=== PATIENT | male | born 1955 | race Caucasian/White ===

== ENCOUNTER 2021-11-10 13:28 | Inpatient (IN) ==
[2021-11-10] MEDS ORDERED: 0.9 % Sodium Chloride 1,000 ML IVC ONE (14:42)
[2021-11-10] MEDS ORDERED: Furosemide 20 MG/2 ML VIAL IVP ONE (15:04)
[2021-11-10 15:17] LABS: Basophils % 0.5 %; Eosinophils % 0.8 %; Mean Corpuscular Volume 98.4 fL (83.0-100.0); Platelet Count 158 K/mcL (140-400)
[2021-11-10 15:18] LABS: Hematocrit 29.9 % (37.5-50.1); Hemoglobin 8.6 g/dL (12.9-16.9); Immature Granulocytes % 0.5 % (0-4); Lymphocytes % 24.7 %; Mean Corpuscular HGB Conc 28.8 g/dL (31.6-35.5); Mean Corpuscular Hemoglobin 28.3 pg (28.0-33.3); Mean Platelet Volume 11.5 fL (9.4-12.4); Monocytes # 0.4 K/mcL (0.0-1.3); Monocytes % 8.9 %; Neutrophils # 2.5 K/mcL (1.6-8.9); Red Blood Count 3.04 M/mcL (4.19-5.50); Red Cell Distribution Width 16.8 % (11.5-14.5); Segmented Neutrophils % 64.6 %; White Blood Count 3.9 K/mcL (4.3-11.1)
[2021-11-10 15:27] LABS: INR 2.1
[2021-11-10 15:30] LABS: Activated Partial Thrombo Time 38.9 Seconds (26.0-36.0)
[2021-11-10 15:34] LABS: Albumin 3.9 g/dL (3.5-5.7); Albumin/Globulin Ratio 1.3 (1.1-2.2); Bilirubin,Direct 0.1 mg/dL (0.0-0.2); Bilirubin,Indirect 0.2 mg/dL (0.0-1.0); Bilirubin,Total 0.3 mg/dL (0.3-1.0); Calcium 8.4 mg/dL (8.6-10.3); Globulin 3.1 g/dL (2.4-3.5); Potassium 5.3 mEq/L (3.5-5.1)
[2021-11-10 16:07] LABS: Influenza A PCR Negative (Negative); Influenza B PCR Negative (Negative); Resp. Syncytial Virus PCR Negative (Negative)
[2021-11-10 16:10] LABS: SARS-CoV-2 by PCR (In House) Negative (Negative)
[2021-11-10 16:44] LABS: Platelet Estimate Normal (Normal)
[2021-11-10 17:33] LABS: % Iron Saturation 5 % (20-55); Iron 23 mcg/dL (65-175); Transferrin 347 mg/dL (203-362)
[2021-11-10] MEDS ORDERED: Naloxone 0.4 MG/ML INJ IVP PRN (17:37)
[2021-11-10] MEDS ORDERED: *HR* Dextrose 50 % in Water (Syg) 50 ML SYRINGE IVP PRN (17:40)
[2021-11-10] MEDS ORDERED: Dextrose Gel 15 GM/37.5 ML TUBE PO PRN ×2 (17:40)
[2021-11-10] MEDS ORDERED: D5% in Water 1,000 ML IVC PRN (17:40)
[2021-11-10 17:46] LABS: Ferritin 14 ng/mL (20-250)
[2021-11-10 18:55] LABS: Bilirubin,Urine Negative (Negative); Blood,Urine Negative (Negative); Clarity,Urine Clear (Clear); Color,Urine Colorless (Yellow); Glucose,Urine (UA) Normal (Normal); Ketones,Urine Negative (Negative); Leukocyte Esterase,Urine Negative (Negative); Nitrite,Urine Negative (Negative); PH,Urine 5.5 pH Units (5.0-8.0); Protein,Urine Negative (Neg-Trace); Specific Gravity,Urine 1.013 (1.010-1.025); Urobilinogen,Urine Normal (Normal)
[2021-11-10 19:06] LABS: Protein/Creatinine Ratio,Urine 0.15 mg/mg (0.00-0.20)
[2021-11-10] MEDS: Apixaban 5 MG TABLET PO SCH (22:29)
[2021-11-10] MEDS: SODIUM ZIRCONIUM CYCLOSILICATE 5 GM POWD.PACK PO SCH (22:29)
[2021-11-10] MEDS: Furosemide 40 MG/4 ML VIAL IVP SCH (22:29)
[2021-11-10] MEDS: Insulin DETEMIR 100 UNIT/ML X5UNITS SUBQ SCH (22:29)
[2021-11-10] MEDS: calcitrioL 0.25 MCG CAPSULE PO SCH (22:29)
[2021-11-10] MEDS: Albumin 25% 25gram/100mL 25 GM/100 ML IV.SOLN IVPB SCH (22:30)
[2021-11-10] MEDS: Metoprolol XL (24 HR) Succ 25 MG TAB.ER.24H PO SCH (22:30)
[2021-11-10] MEDS: Insulin LISPRO 300 UNITS/3 ML VIAL SUBQ SCH (22:31)
[2021-11-10] MEDS: metOLazone 5 MG TABLET PO SCH (22:32)
[2021-11-11] MEDS: Albumin 25% 25gram/100mL 25 GM/100 ML IV.SOLN IVPB SCH ×3 (00:51→16:31)
[2021-11-11 02:35] LABS: Basophils % 0.6 %; Immature Granulocytes % 0.3 % (0-4)
[2021-11-11 02:37] LABS: Eosinophils % 0.9 %; Hematocrit 27.4 % (37.5-50.1); Hemoglobin 7.8 g/dL (12.9-16.9); Lymphocytes % 30.2 %; Mean Corpuscular HGB Conc 28.5 g/dL (31.6-35.5); Mean Corpuscular Volume 98.2 fL (83.0-100.0); Mean Platelet Volume 11.6 fL (9.4-12.4); Monocytes # 0.3 K/mcL (0.0-1.3); Platelet Count 143 K/mcL (140-400); Red Blood Count 2.79 M/mcL (4.19-5.50); Red Cell Distribution Width 16.8 % (11.5-14.5); White Blood Count 3.3 K/mcL (4.3-11.1)
[2021-11-11 02:49] LABS: Calcium 8.4 mg/dL (8.6-10.3); Magnesium 2.5 mg/dL (1.6-2.6); Phosphorous 4.5 mg/dL (2.7-4.5); Potassium 4.7 mEq/L (3.5-5.1)
[2021-11-11 03:29] LABS: Hypochromasia Present (Not Present); Platelet Estimate Normal (Normal)
[2021-11-11] MEDS: SODIUM ZIRCONIUM CYCLOSILICATE 5 GM POWD.PACK PO SCH (08:23)
[2021-11-11] MEDS: BuPROPion XL (24 HR) 150 MG TABLET PO SCH (08:23)
[2021-11-11] MEDS: metOLazone 5 MG TABLET PO SCH (08:26)
[2021-11-11] MEDS: Apixaban 5 MG TABLET PO SCH ×2 (08:27→21:28)
[2021-11-11] MEDS: Insulin LISPRO 300 UNITS/3 ML VIAL SUBQ SCH ×4 (08:27→21:27)
[2021-11-11] MEDS: Furosemide 40 MG/4 ML VIAL IVP SCH ×2 (08:27→17:26)
[2021-11-11] MEDS: Metoprolol XL (24 HR) Succ 50 MG TAB.ER.24H PO SCH (08:27)
[2021-11-11] MEDS: Insulin DETEMIR 100 UNIT/ML X5UNITS SUBQ SCH ×2 (08:28→22:41)
[2021-11-11] MEDS: calcitrioL 0.25 MCG CAPSULE PO SCH (11:18)
[2021-11-11] MEDS: Metoprolol XL (24 HR) Succ 25 MG TAB.ER.24H PO SCH (17:26)
[2021-11-12] MEDS: Albumin 25% 25gram/100mL 25 GM/100 ML IV.SOLN IVPB SCH ×3 (00:32→15:27)
[2021-11-12] MEDS: Metoprolol XL (24 HR) Succ 50 MG TAB.ER.24H PO SCH (09:10)
[2021-11-12] MEDS: BuPROPion XL (24 HR) 150 MG TABLET PO SCH (09:10)
[2021-11-12] MEDS: calcitrioL 0.25 MCG CAPSULE PO SCH (09:10)
[2021-11-12] MEDS: metOLazone 5 MG TABLET PO SCH (09:10)
[2021-11-12] MEDS: SODIUM ZIRCONIUM CYCLOSILICATE 5 GM POWD.PACK PO SCH (09:10)
[2021-11-12] MEDS: Insulin DETEMIR 100 UNIT/ML X5UNITS SUBQ SCH ×2 (09:11→21:57)
[2021-11-12] MEDS: Insulin LISPRO 300 UNITS/3 ML VIAL SUBQ SCH ×4 (09:15→21:57)
[2021-11-12] MEDS: Ondansetron 4 MG/2 ML VIAL IVP PRN (10:16)
[2021-11-12 12:13] LABS: Calcium 8.7 mg/dL (8.6-10.3); Potassium 4.7 mEq/L (3.5-5.1)
[2021-11-12] MEDS: Apixaban 5 MG TABLET PO SCH ×2 (12:20→21:57)
[2021-11-12] MEDS: Furosemide 40 MG/4 ML VIAL IVP SCH ×2 (12:20→17:40)
[2021-11-12] MEDS ORDERED: Metoclopramide 10 MG/2 ML VIAL IVP PRN (14:56)
[2021-11-12] MEDS: Metoprolol XL (24 HR) Succ 25 MG TAB.ER.24H PO SCH (17:07)
[2021-11-12 21:45] LABS: Lambda Qnt Free Light Chains 60.57 mg/L (5.71-26.30)
[2021-11-13] MEDS: Albumin 25% 25gram/100mL 25 GM/100 ML IV.SOLN IVPB SCH ×3 (00:10→17:51)
[2021-11-13 02:26] LABS: Eosinophils % 1.1 %; Immature Granulocytes % 0.5 % (0-4)
[2021-11-13 02:28] LABS: Basophils % 0.7 %; Eosinophils # 0.1 K/mcL (0.0-0.6); Hematocrit 29.1 % (37.5-50.1); Hemoglobin 8.1 g/dL (12.9-16.9); Lymphocytes # 1.3 K/mcL (0.6-4.6); Lymphocytes % 29.1 %; Mean Corpuscular HGB Conc 27.8 g/dL (31.6-35.5); Mean Corpuscular Hemoglobin 27.6 pg (28.0-33.3); Mean Corpuscular Volume 99.3 fL (83.0-100.0); Mean Platelet Volume 12.2 fL (9.4-12.4); Monocytes # 0.5 K/mcL (0.0-1.3); Monocytes % 10.7 %; Neutrophils # 2.6 K/mcL (1.6-8.9); Platelet Count 156 K/mcL (140-400); Red Blood Count 2.93 M/mcL (4.19-5.50); Red Cell Distribution Width 16.8 % (11.5-14.5); Segmented Neutrophils % 57.9 %; White Blood Count 4.4 K/mcL (4.3-11.1)
[2021-11-13 02:47] LABS: Calcium 8.7 mg/dL (8.6-10.3); Magnesium 2.3 mg/dL (1.6-2.6); Phosphorous 4.6 mg/dL (2.7-4.5); Potassium 4.8 mEq/L (3.5-5.1)
[2021-11-13 02:57] LABS: Anisocytosis 1+ (Not Present); Hypochromasia Present (Not Present); Platelet Estimate Normal (Normal)
[2021-11-13 09:20] LABS: Kappa Qnt Free Light Chains 136.46 mg/L (3.30-19.40)
[2021-11-13 09:43] LABS: INR 1.9; Prothrombin Time 21.4 Seconds (9.4-12.1)
[2021-11-13] MEDS: calcitrioL 0.25 MCG CAPSULE PO SCH (10:19)
[2021-11-13] MEDS: BuPROPion XL (24 HR) 150 MG TABLET PO SCH (10:20)
[2021-11-13] MEDS: Apixaban 5 MG TABLET PO SCH ×2 (10:21→20:03)
[2021-11-13] MEDS: Metoprolol XL (24 HR) Succ 50 MG TAB.ER.24H PO SCH (10:22)
[2021-11-13] MEDS: Insulin LISPRO 300 UNITS/3 ML VIAL SUBQ SCH ×4 (10:22→20:04)
[2021-11-13] MEDS: metOLazone 5 MG TABLET PO SCH (10:22)
[2021-11-13] MEDS: SODIUM ZIRCONIUM CYCLOSILICATE 5 GM POWD.PACK PO SCH (10:22)
[2021-11-13] MEDS: Furosemide 40 MG/4 ML VIAL IVP SCH ×4 (10:29→21:30)
[2021-11-13] MEDS: Insulin DETEMIR 100 UNIT/ML X5UNITS SUBQ SCH ×2 (11:43→20:05)
[2021-11-13 13:51] LABS: Total Protein,Peritoneal Fluid 4.1 g/dL
[2021-11-13] MEDS: DilTIAZem CD (24hr) 120 MG CAP.ER.24H PO SCH (14:10)
[2021-11-13 14:41] LABS: RBC,Peritoneal Fluid < 2000 RBC/mcL
[2021-11-13 14:43] LABS: Appearance of Peritoneal Fl CLEAR (Clear)
[2021-11-13 15:33] LABS: Eosinophils,Peritoneal Fluid 0 %
[2021-11-13] MEDS ORDERED: Metoprolol XL (24 HR) Succ 25 MG TAB.ER.24H PO SCH (18:00)
[2021-11-13] MEDS: Albumin 25% 25gram/100mL 25 GM/100 ML IV.SOLN IVC SCH ×2 (18:04→20:01)
[2021-11-13] MEDS: Ondansetron 4 MG/2 ML VIAL IVP PRN (21:19)
[2021-11-14 06:43] LABS: Basophils % 0.5 %; Eosinophils # 0.1 K/mcL (0.0-0.6); Eosinophils % 1.2 %; Hematocrit 29.6 % (37.5-50.1); Hemoglobin 8.4 g/dL (12.9-16.9); Immature Granulocytes % 0.5 % (0-4); Lymphocytes # 1.1 K/mcL (0.6-4.6); Lymphocytes % 26.9 %; Mean Corpuscular HGB Conc 28.4 g/dL (31.6-35.5); Mean Corpuscular Hemoglobin 27.9 pg (28.0-33.3); Mean Corpuscular Volume 98.3 fL (83.0-100.0); Mean Platelet Volume 12.1 fL (9.4-12.4); Monocytes # 0.4 K/mcL (0.0-1.3); Monocytes % 10.2 %; Neutrophils # 2.5 K/mcL (1.6-8.9); Platelet Count 149 K/mcL (140-400); Red Blood Count 3.01 M/mcL (4.19-5.50); Red Cell Distribution Width 16.5 % (11.5-14.5); Segmented Neutrophils % 60.7 %; White Blood Count 4.1 K/mcL (4.3-11.1)
[2021-11-14 06:44] LABS: Hypochromasia Present (Not Present); Platelet Estimate Normal (Normal)
[2021-11-14 07:11] LABS: Calcium 9.1 mg/dL (8.6-10.3); Magnesium 2.3 mg/dL (1.6-2.6); Potassium 4.5 mEq/L (3.5-5.1)
[2021-11-14] MEDS: Apixaban 5 MG TABLET PO SCH (07:42)
[2021-11-14] MEDS: Metoprolol XL (24 HR) Succ 50 MG TAB.ER.24H PO SCH (07:42)
[2021-11-14] MEDS: metOLazone 5 MG TABLET PO SCH (07:42)
[2021-11-14] MEDS: BuPROPion XL (24 HR) 150 MG TABLET PO SCH (07:43)
[2021-11-14] MEDS: Insulin LISPRO 300 UNITS/3 ML VIAL SUBQ SCH ×2 (07:43→13:10)
[2021-11-14] MEDS: Furosemide 40 MG/4 ML VIAL IVP SCH (07:43)
[2021-11-14] MEDS: calcitrioL 0.25 MCG CAPSULE PO SCH (07:43)
[2021-11-14] MEDS: Insulin DETEMIR 100 UNIT/ML X5UNITS SUBQ SCH (07:43)
[2021-11-14] MEDS: DilTIAZem CD (24hr) 120 MG CAP.ER.24H PO SCH (07:43)
[2021-11-14] MEDS: SODIUM ZIRCONIUM CYCLOSILICATE 5 GM POWD.PACK PO SCH (07:44)
[2021-11-14 11:02] VITALS: BP 125/71; PULSE 120; TEMP 98.7; O2SAT 93
[2021-11-16 00:18] LABS: Beta Globulin (PEP) 0.95 g/dL (0.48-1.10)
[2021-11-16 09:59] LABS: Immunoglobulin A 380 mg/dL (68-408); Immunoglobulin G 1140 mg/dL (768-1632); Immunoglobulin M 33 mg/dL (35-263)
[2021-11-16 10:00] LABS: IFE Reflexed IFE Done
== END 2021-11-14 16:38 | disposition home or self-care (01) | DRG 291 ==
LOC: EMEROOARM 13:28 → 2ANU 13:28
PROVIDERS: ADMIT Student in an Organized Health Care Education/Training Program; ATTEND Student in an Organized Health Care Education/Training Program